=== PATIENT | female | born 1990 | race Caucasian/White ===

== ENCOUNTER 2021-11-13 11:31 | Emergency (ER) | payer MEDICAID, OTHER ==
[~2021-11-13] VITALS: Ht 167.6 cm; Wt 58.1 kg
[2021-11-13] MEDS ORDERED: ONDANSETRON 4 MG/2 ML VIAL ONE (12:03)
[2021-11-13] MEDS ORDERED: ONDANSETRON 4 MG/2 ML VIAL IM ONE (12:15)
[2021-11-13] MEDS ORDERED: HYDROCODONE/APAP 5-325MG TABLET PO ONE (13:15)
[2021-11-13] MEDS ORDERED: HYDROCODONE/APAP 5-325MG TABLET ONE (13:16)
--- NOTE | 2021-11-13 13:34 | NUR ---
PT WAS EVALUATED BY DR SMITH. PT WAS D/C'd TO HOME. D/C INSTRUCTIONS GIVEN TO THE PT BY DR SMITH.
[2021-11-13 13:35] VITALS: BP 132/61
--- NOTE | 2021-11-13 14:22 | NUR ---
MD REVIEWED TEST RESULTS WITH PATIENT. MEDICATED FOR PAIN ASPER MD ORDER - EFFECTIVE.
== END 2021-11-13 14:23 | disposition home or self-care (01) ==
LOC: ER 11:31
DX: S06.0X0A Concussion without loss of consciousness, initial encounter (principal); R40.2362 Coma scale, best motor response, obeys commands, at arrival to emergency department; R40.2142 Coma scale, eyes open, spontaneous, at arrival to emergency department; R40.2252 Coma scale, best verbal response, oriented, at arrival to emergency department; V00.131A Fall from skateboard, initial encounter; Y93.51 Activity, roller skating (inline) and skateboarding; Y92.89 Other specified places as the place of occurrence of the external cause; F19.90 Other psychoactive substance use, unspecified, uncomplicated; M54.2 Cervicalgia
CPT/HCPCS: 99285; 70450; 72125; 96372; J2405; A4663